=== PATIENT | male | born 1965 | race Caucasian/White ===

== ENCOUNTER 2017-07-24 09:08 | Inpatient (IN) | END 2017-07-28 18:18 | disposition home or self-care (01) | DRG 281 ==

== ENCOUNTER 2018-01-10 10:23 | Inpatient (IN) | END 2018-01-11 17:31 | disposition home or self-care (01) | DRG 308 ==

== ENCOUNTER 2018-02-02 14:46 | Emergency (ER) | END 2018-02-02 18:11 | disposition home or self-care (01) ==